=== PATIENT | female | born 1990 | race Two or more races ===

== ENCOUNTER 2018-07-08 22:47 | Emergency (ER) | payer MEDICAID ==
[~2018-07-08] VITALS: Ht 160 cm; Wt 84.4 kg
[2018-07-08 23:00] VITALS: BP 131/80
== END 2018-07-09 02:09 | disposition left against medical advice (07) ==
LOC: ER 22:47
DX: R10.2 Pelvic and perineal pain (principal); Z53.21 Procedure and treatment not carried out due to patient leaving prior to being seen by health care provider